=== PATIENT | male | born 1990 | race African-American/Black ===

== ENCOUNTER 2021-06-19 19:52 | Emergency (ER) | payer SELFPAY ==
[~2021-06-19] VITALS: Ht 177.8 cm; Wt 64.0 kg
[2021-06-19 19:55] VITALS: BP 109/78
== END 2021-06-19 22:50 | disposition left against medical advice (07) ==
LOC: ER 19:52
DX: Z53.21 Procedure and treatment not carried out due to patient leaving prior to being seen by health care provider (principal)
CPT/HCPCS: 93005